=== PATIENT | male | born 2000 | race American Indian/Alaskan Native ===

== ENCOUNTER 2020-06-26 22:56 | Emergency (ER) | payer OTHER ==
[~2020-06-26] VITALS: Ht 172.7 cm; Wt 99.8 kg
[2020-06-27] MEDS ORDERED: PEPCID20 MG PO (02:11)
[2020-06-27] MEDS ORDERED: EPIN0.3P IM (02:11)
[2020-06-27] MEDS ORDERED: PREDNISONE20 MG PO (02:11)
[2020-06-27] MEDS ORDERED: BENADRYL ALLERG25 MG PO (02:11)
== END 2020-06-27 02:58 | disposition home or self-care (01) ==
LOC: ED 22:56
DX: L50.0 Allergic urticaria (principal)
CPT/HCPCS: 96374; 96375; 99283-25; J0171; J1200; J2930

== ENCOUNTER 2021-04-02 13:14 | Emergency (ER) | payer OTHER ==
[~2021-04-02] VITALS: Ht 177.8 cm; Wt 136.1 kg
[~2021-04-02 13:14] MED LIST: BENADRYL ALLERG25 MG PO; EPIN0.3P IM; PEPCID20 MG PO; PREDNISONE20 MG PO
== END 2021-04-02 14:00 | disposition home or self-care (01) ==
LOC: ED 13:14
DX: S06.0X0A Concussion without loss of consciousness, initial encounter (principal); Y93.01 Activity, walking, marching and hiking; W26.8XXA Contact with other sharp object(s), not elsewhere classified, initial encounter; Z79.899 Other long term (current) drug therapy
CPT/HCPCS: 99283

== ENCOUNTER 2021-07-18 21:15 | Emergency (ER) | payer BC, OTHER ==
[~2021-07-18] VITALS: Ht 177.8 cm; Wt 141.0 kg
[2021-07-18] MEDS ORDERED: MAALOX ADVANCE1 EACH PO (23:01)
[2021-07-18] MEDS ORDERED: PEPCID20 MG PO (23:01)
--- NOTE | 2021-07-20 13:31 | EKG ---
[facility] [address] [place], [place] [address] Signed Normal sinus rhythm with sinus arrhythmia Normal ECG No previous ECGs available Confirmed by MICHI RUIZ DO ([id number]) on 07/20/2021 1:30:55 PM Electronically Signed By: MICHI RUIZ DO 07/20/21 1331 PATIENT NAME: CHRISTOPHER SCRUGGS Electrocardiogram DATE OF : [birth year] PHYSICIAN: MICHI RUIZ DO REPORT #: [id number] REPORT IS CONFIDENTIAL AND NOT TO BE RELEASED WITHOUT AUTHORIZATION
== END 2021-07-18 23:25 | disposition home or self-care (01) ==
LOC: ED 21:15
DX: R07.9 Chest pain, unspecified (principal); R09.89 Other specified symptoms and signs involving the circulatory and respiratory systems; E66.9 Obesity, unspecified
CPT/HCPCS: 71046; 80053; 83690; 84484; 85025; 93005; 93010; 99285-25

== ENCOUNTER 2021-07-19 21:45 | Emergency (ER) | payer BC, OTHER ==
[~2021-07-19] VITALS: Ht 177.8 cm; Wt 142.2 kg
[~2021-07-19 21:45] MED LIST changes: +MAALOX ADVANCE1 EACH PO
--- OUTSIDE RECORDS SUMMARY | 2021-07-19 21:52 | XMS ---
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 Rylee has no Care Guidelines for this patient. Mihaela VISIT COUNT (12 MO.) 3 [facility] TOTAL 3 NOTE: Visits indicate total known visits. 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
--- NOTE | 2021-07-20 13:32 | EKG ---
[facility] [address] [facility] [facility] [place], [place] [address] Signed Normal sinus rhythm Minimal voltage criteria for LVH, may be normal variant ( R in aVL ) Borderline ECG When compared with ECG of 18-JUL-2021 21:24, (Unconfirmed) No significant change was found Confirmed by MICHI RUIZ DO ([id number]) on 07/20/2021 1:32:49 PM Electronically Signed By: MICHI RUIZ DO 07/20/21 1332 PATIENT NAME: CHRISTOPHER SCRUGGS Electrocardiogram DATE OF : 00 PHYSICIAN: MICHI RUIZ DO REPORT #: [id number] REPORT IS CONFIDENTIAL AND NOT TO BE RELEASED WITHOUT AUTHORIZATION
== END 2021-07-20 07:02 | disposition home or self-care (01) ==
LOC: ED 21:45
DX: K76.0 Fatty (change of) liver, not elsewhere classified (principal); R07.9 Chest pain, unspecified; Z88.0 Allergy status to penicillin; Z88.8 Allergy status to other drugs, medicaments and biological substances; Z79.899 Other long term (current) drug therapy
CPT/HCPCS: 76705; 80053; 84484; 85025; 85379; 93005; 93010; 99285-25

== ENCOUNTER 2021-08-21 19:19 | Emergency (ER) | payer BC, OTHER ==
[~2021-08-21] VITALS: Ht 177.8 cm; Wt 131.5 kg
--- OUTSIDE RECORDS SUMMARY | 2021-08-21 19:26 | XMS ---
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 E.Fatou VISIT COUNT (12 MO.) 4 [facility] TOTAL 4 NOTE: Visits indicate total known visits. 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
== END 2021-08-21 21:17 | disposition home or self-care (01) ==
LOC: ED 19:19
DX: R10.9 Unspecified abdominal pain (principal); Z88.0 Allergy status to penicillin; Z91.09 Other allergy status, other than to drugs and biological substances
CPT/HCPCS: 36415; 74177; 80053; 82150; 83690; 85025; 99284-25

== ENCOUNTER 2021-09-08 20:11 | Emergency (ER) | payer BC, OTHER ==
[~2021-09-08] VITALS: Ht 177.8 cm; Wt 130.1 kg
--- OUTSIDE RECORDS SUMMARY | 2021-09-08 20:18 | XMS ---
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 Mihaela VISIT COUNT (12 MO.) [address] [place] [address] TOTAL 5 NOTE: Visits indicate total known visits. ED/UCC VISIT TRACKING (12 MO.) 09/08/2021 20:12 [facility] [place] TYPE: Emergency COMPLAINT: - WEAKNESS,CHEST DISCOMFORT,ABD PAIN 08/21/2021 19:19 [facility] [place] TYPE: Emergency COMPLAINT: - ABD PAIN,N/V,LOWER ACK PAIN DIAGNOSES: - Other allergy status, other than to drugs and biological substances - Unspecified abdominal pain - Allergy status to penicillin 07/19/2021 21:45 [facility] [place] TYPE: Emergency COMPLAINT: - CHEST DISCOMFORT,SOB,ABD PAIN DIAGNOSES: - Allergy status to penicillin - Allergy status to other drugs, medicaments and biological substances - Fatty (change of) liver, not elsewhere classified - Other intermediate (current) drug therapy - Chest pain, unspecified - Epigastric pain 07/18/2021 21:16 [facility] [place] TYPE: Emergency COMPLAINT: - CHEST PAIN DIAGNOSES: - Chest pain, unspecified - Other specified symptoms and signs involving the circulatory and respiratory systems - Obesity, unspecified 04/02/2021 13:15 [facility] [place] TYPE: Emergency COMPLAINT: - DISORIENTED, SLUGGISH EYES DIAGNOSES: - Contact with other sharp object(s), not elsewhere classified, initial encounter - Unspecified injury of head, initial encounter - Concussion without loss of consciousness, initial encounter - 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
[2021-09-08] MEDS ORDERED: VISTARIL25 MG PO (23:39)
--- NOTE | 2021-09-09 08:08 | EKG ---
[facility] [address] [facility] [place] [address] Signed Normal sinus rhythm Normal ECG No previous ECGs available Confirmed by TONY MORGAN MD ([id number]) on 09/09/2021 8:07:48 AM Electronically Signed By: TONY MORGAN MD 09/09/21 0808 PATIENT NAME: CHRISTOPHER SCRUGGS Electrocardiogram DATE OF : 00 PHYSICIAN: TONY MORGAN MD REPORT #: [id number] REPORT IS CONFIDENTIAL AND NOT TO BE RELEASED WITHOUT AUTHORIZATION
== END 2021-09-09 00:05 | disposition home or self-care (01) ==
LOC: ED 20:11
DX: F41.9 Anxiety disorder, unspecified (principal); R07.89 Other chest pain; Z88.0 Allergy status to penicillin; Z91.09 Other allergy status, other than to drugs and biological substances
CPT/HCPCS: 36415; 71045; 80053; 83690; 84484; 85025; 93005; 93010; 99285-25; J2060

== ENCOUNTER 2021-09-10 21:32 | Emergency (ER) | payer BC, OTHER ==
[~2021-09-10] VITALS: Ht 177.8 cm; Wt 130.0 kg
[~2021-09-10 21:32] MED LIST changes: +VISTARIL25 MG PO
--- OUTSIDE RECORDS SUMMARY | 2021-09-10 21:40 | XMS ---
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 Mihaela VISIT COUNT (12 MO.) 6 [facility] TOTAL 6 NOTE: Visits indicate total known visits. 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
== END 2021-09-10 23:19 | disposition home or self-care (01) ==
LOC: ED 21:32
DX: K59.00 Constipation, unspecified (principal); Z88.0 Allergy status to penicillin; Z91.09 Other allergy status, other than to drugs and biological substances
CPT/HCPCS: 36415; 74018; 80053; 81001; 83690; 85025; 99284-25; A9270

== ENCOUNTER 2021-09-12 21:44 | Emergency (ER) | payer BC, OTHER ==
[~2021-09-12] VITALS: Ht 177.8 cm; Wt 128.8 kg
--- OUTSIDE RECORDS SUMMARY | 2021-09-12 21:54 | XMS ---
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 Mihaela VISIT COUNT (12 MO.) [address] [place] [address] TOTAL 8 NOTE: Visits indicate total known visits. ED/UCC VISIT TRACKING (12 MO.) 09/12/2021 21:[address] [facility] [place] TYPE: Emergency COMPLAINT: - ABD PAIN, BOWELL PROBLEMS 09/11/2021 21:51 [facility] [place] TYPE: Emergency COMPLAINT: - ABD PAIN, CONSTIPATION 09/10/2021 21:33 [facility] [place] TYPE: Emergency COMPLAINT: - CONSTIPATION 09/08/2021 20:[address] [facility] [place] TYPE: Emergency COMPLAINT: - WEAKNESS,CHEST DISCOMFORT,ABD PAIN DIAGNOSES: - Other chest pain - Other allergy status, other than to drugs and biological substances - Allergy status to penicillin - Anxiety disorder, unspecified 08/21/2021 19:19 [facility] [place] TYPE: Emergency [...] liver, not elsewhere classified - Other intermediate accountant (current) drug therapy - Chest pain, unspecified [...] loss of consciousness, initial encounter - Other intermediate accountant (current) drug therapy - Activity, walking, marching and hiking INPATIENT VISIT TRACKING (12 MO.) No inpatient visits to display in this time frame [id number]
--- NOTE | 2021-09-14 14:54 | EKG ---
[facility] [address] [facility] [place] [address] Signed Normal sinus rhythm Incomplete right bundle branch block Borderline ECG When compared with ECG of 08-SEP-2021 20:54, No significant change was found Confirmed by ESTRELLA SWAN MD ([id number]) on 09/14/2021 2:53:53 PM Electronically Signed By: ESTRELLA SWAN MD 09/14/21 1454 PATIENT NAME: CHRISTOPHER SCRUGGS RADHA ALVAREZJANAY Electrocardiogram DATE OF : 00 PHYSICIAN: ESTRELLA SWAN MD REPORT #: [id number] REPORT IS CONFIDENTIAL AND NOT TO BE RELEASED WITHOUT AUTHORIZATION
== END 2021-09-12 23:58 | disposition home or self-care (01) ==
LOC: ED 21:44
DX: R10.12 Left upper quadrant pain (principal); R10.30 Lower abdominal pain, unspecified; R11.0 Nausea; R42 Dizziness and giddiness; Z88.0 Allergy status to penicillin; Z91.09 Other allergy status, other than to drugs and biological substances
CPT/HCPCS: 93005; 93010; 99284-25

== ENCOUNTER 2021-09-15 19:55 | Emergency (ER) | payer BC, OTHER ==
[~2021-09-15] VITALS: Ht 177.8 cm; Wt 130.0 kg
--- OUTSIDE RECORDS SUMMARY | 2021-09-15 20:02 | XMS ---
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 Mihaela VISIT COUNT (12 MO.) [address] [place] [address] TOTAL 9 NOTE: Visits indicate total known visits. ED/UCC VISIT TRACKING (12 MO.) 09/15/2021 19:55 [facility] [place] TYPE: Emergency COMPLAINT: - SHORTNESS OF BREATH 09/12/2021 21:45 [facility] [place] TYPE: Emergency COMPLAINT: - ABD PAIN, BOWELL PROBLEMS DIAGNOSES: - Left upper quadrant pain - Nausea - Allergy status to penicillin - Lower abdominal pain, unspecified - Dizziness and giddiness - Unspecified abdominal pain - Other allergy status, other than to drugs and biological substances 09/11/2021 21:51 [facility] [place] TYPE: Emergency COMPLAINT: - ABD PAIN, CONSTIPATION 09/10/2021 21:33 [facility] [place] [facility]: Emergency COMPLAINT: - CONSTIPATION DIAGNOSES: - Other allergy status, other than to drugs and biological substances - Allergy status to penicillin - Lower abdominal pain, unspecified - Constipation, unspecified 09/08/2021 20:12 [facility] [place] TYPE: Emergency COMPLAINT: - WEAKNESS,CHEST DISCOMFORT,ABD PAIN DIAGNOSES: - Other chest pain - Other allergy status, other than to drugs and biological substances - Allergy status to penicillin - Anxiety disorder, unspecified 08/21/2021 19:19 [facility] [place] TYPE: Emergency COMPLAINT: - ABD PAIN,N/V,LOWER ACK PAIN DIAGNOSES: - Other allergy status, other than to drugs and biological substances - Unspecified abdominal pain - Allergy status to penicillin 07/19/2021 21:45 [facility] [place] [place] TYPE: Emergency COMPLAINT: - CHEST DISCOMFORT,SOB,ABD PAIN DIAGNOSES: - Allergy status to penicillin - Allergy status to other drugs, medicaments and biological substances - Fatty (change of) liver, not elsewhere classified - Other usp (current) drug therapy - Chest pain, unspecified [...] loss of consciousness, initial encounter - Other salvage determiner (current) drug therapy - Activity, walking, marching and hiking INPATIENT VISIT TRACKING (12 MO.) No inpatient visits to display in this time frame [id number]
[2021-09-15] MEDS ORDERED: METAMUCIL FIBE3.4 GM PO (20:07)
[2021-09-15] MEDS ORDERED: medrol dose pack (21:11)
== END 2021-09-15 21:20 | disposition home or self-care (01) ==
LOC: ED 19:55
DX: T78.40XA Allergy, unspecified, initial encounter (principal); Z88.0 Allergy status to penicillin; Z88.8 Allergy status to other drugs, medicaments and biological substances
CPT/HCPCS: 96372; 99284; J1100; J1200

== ENCOUNTER 2022-07-05 19:36 | Emergency (ER) | payer BC, OTHER ==
[~2022-07-05] VITALS: Ht 177.8 cm; Wt 126.0 kg
[~2022-07-05 19:36] MED LIST changes: +METAMUCIL FIBE3.4 GM PO; +medrol dose pack
[2022-07-05] MEDS ORDERED: BUPROPION XL150 MG PO (19:53)
== END 2022-07-05 21:26 | disposition home or self-care (01) ==
LOC: ED 19:36
DX: T28.0XXA Burn of mouth and pharynx, initial encounter (principal); X10.0XXA Contact with hot drinks, initial encounter; Z20.822 Contact with and (suspected) exposure to COVID-19; Z88.0 Allergy status to penicillin; Z88.8 Allergy status to other drugs, medicaments and biological substances; Z79.899 Other long term (current) drug therapy
CPT/HCPCS: 87081; 87502; 87880; 99283; A9270; U0003

== ENCOUNTER 2024-03-28 19:41 | Emergency (ER) | payer BC ==
[~2024-03-28] VITALS: Ht 177.8 cm; Wt 120.0 kg
[~2024-03-28 19:41] MED LIST changes: +BUPROPION XL150 MG PO; +CIPRO500 MG PO; +HYDROCODON-ACE1 EA10 PO; +METRONIDAZOLE500 MG PO; +ONDANSETRON ODT8 MG PO
[2024-03-28 20:26] LABS: EOSINOPHILS 0.5 % (0-6); HEMOGLOBIN 14.9 g/dL (12.0-18.0); MCHC 34.6 g/dl (30-36)
[2024-03-28 20:28] LABS: BASOPHILS 0.4 % (0-2); HEMATOCRIT 42.9 % (35.0-50.0); MCH 30.2 (27-36); MONOCYTES 6.3 % (0-12); NEUTROPHILS 77.8 % (39-80); PLATELET COUNT 264 K/uL (140-440); RBC 4.93 M/ul (4.3-5.7); RDW 12.4 (10.5-15.0)
[2024-03-28] MEDS ORDERED: SODIUM CHLORIDE 0.9% 1,000 ML IV SCH (20:30)
[2024-03-28 20:41] LABS: ALBUMIN 4.2 g/dL (3.4-5.0); ALBUMIN/GLOBULIN RATIO 1.24 (1.1-2.4); ANION GAP 11.9 (7-21); BILIRUBIN, TOTAL 0.4 ng/dL (0.2-1.0); BUN/CREATININE RATIO 13.68 (6.0-28.6); CALCIUM 9.4 mg/dL (8.5-10.1); CREATININE, SERUM 0.95 mg/dL (0.70-1.30); POTASSIUM 3.9 mmol/L (3.5-5.1); PROTEIN, TOTAL 7.6 g/dL (6.4-8.2)
[2024-03-28 22:21] LABS: BILIRUBIN, URINE NEGATIVE (negative); BLOOD/HGB, URINE NEGATIVE (Negative); KETONE, URINE NEGATIVE (Negative); LEUK ESTERASE, URINE NEGATIVE (negative); NITRITE, URINE NEGATIVE (negative)
[2024-03-28] MEDS ORDERED: HYDROCODONE BIT/ACETAMINOPHEN 5/325 MG 1 TAB HOME.PACK PO PRN (22:30)
[2024-03-28] MEDS ORDERED: ONDANSETRON 4 MG HOME.PACK SL ONE (22:30)
[2024-03-28 22:43] VITALS: BP 143/84
== END 2024-03-28 22:43 | disposition home or self-care (01) ==
LOC: ED 19:41
PROVIDERS: Emergency Medicine
DX: R10.9 Unspecified abdominal pain (principal); Z88.0 Allergy status to penicillin; Z91.09 Other allergy status, other than to drugs and biological substances
CPT/HCPCS: 36415; 74177; 80053; 81003; 83690; 85025; 99284-25; A9270; J7030

== ENCOUNTER 2024-04-01 12:54 | Emergency (ER) | payer BC ==
[~2024-04-01] VITALS: Ht 177.8 cm; Wt 121.2 kg
--- OUTSIDE RECORDS SUMMARY | 2024-04-01 13:01 | XMS ---
PreManage Notification: CHRISTOPHER SCRUGGS Security Scheduling Assistant Events No recent Security Events currently on file CRITERIA MET - [facility] - 2 Visits in 30 Days CARE PROVIDERS -, [place]- Dentist: Consulting Manager [facility] PHONE: [phone] ADRIAN [facility] Current PHONE: [phone] APOORVA LY Physician Current PHONE: [phone] Rylee has no Care Guidelines for this patient. ETammy VISIT COUNT (12 MO.) 2 [facility] TOTAL 2 NOTE: Visits indicate total known visits. ED/UCC VISIT TRACKING (12 MO.) 04/01/2024 12:54 [facility] [place] TYPE: Emergency COMPLAINT: - ABDOMINAL PAIN 03/28/2024 19:41 [facility] [place] TYPE: Emergency COMPLAINT: - ABD PAIN DIAGNOSES: - Allergy status to penicillin - Other allergy status, other than to drugs and biological substances - Unspecified abdominal pain INPATIENT VISIT TRACKING (12 MO.) No inpatient visits to display in this time frame [id number]
[2024-04-01] MEDS ORDERED: ondansetron HCL 4 MG/2 ML VIAL IV ONE (13:30)
[2024-04-01 13:32] LABS: BASOPHILS 1.1 % (0-2); EOSINOPHILS 1.2 % (0-6); HEMATOCRIT 47.7 % (35.0-50.0); HEMOGLOBIN 16.6 g/dL (12.0-18.0); LYMPHOCYTES 19.8 % (24-44); MCH 30.4 (27-36); MCHC 34.8 g/dl (30-36); MCV 87.5 fl (81-99); MONOCYTES 6.3 % (0-12); NEUTROPHILS 71.6 % (39-80); PLATELET COUNT 267 K/uL (140-440); RBC 5.45 M/ul (4.3-5.7); RDW 12.6 (10.5-15.0)
[2024-04-01 13:40] LABS: ALBUMIN 4.5 g/dL (3.4-5.0); ALBUMIN/GLOBULIN RATIO 1.18 (1.1-2.4); ANION GAP 9.8 (7-21); BILIRUBIN, TOTAL 1.1 ng/dL (0.2-1.0); BUN/CREATININE RATIO 10.47 (6.0-28.6); CALCIUM 9.5 mg/dL (8.5-10.1); CREATININE, SERUM 1.05 mg/dL (0.70-1.30); POTASSIUM 3.8 mmol/L (3.5-5.1); PROTEIN, TOTAL 8.3 g/dL (6.4-8.2)
[2024-04-01] MEDS ORDERED: LIDOCAINE & ANTACID 35 ML BTL PO ONE (13:45)
[2024-04-01] MEDS ORDERED: ACETAMINOPHEN 500 MG TAB PO ONE (15:45)
[2024-04-01] MEDS ORDERED: PANTOPRAZOLE SODIUM 40 MG TABEC PO ONE (15:45)
[2024-04-01] MEDS ORDERED: OMEPRAZOLE20 MG PO (16:01)
[2024-04-01 16:05] VITALS: BP 139/84
[2024-04-02] MEDS ORDERED: MIRALAX119 GM PO (22:12)
== END 2024-04-01 16:05 | disposition home or self-care (01) ==
LOC: ED 12:54
PROVIDERS: Emergency Medicine
DX: K29.70 Gastritis, unspecified, without bleeding (principal); Z88.0 Allergy status to penicillin; Z91.09 Other allergy status, other than to drugs and biological substances
CPT/HCPCS: 36415; 80053; 83690; 85025; 96374; 99284-25; A9270; J2405

== ENCOUNTER 2024-04-02 19:44 | Emergency (ER) | payer BC ==
[~2024-04-02] VITALS: Ht 177.8 cm; Wt 121.3 kg
[~2024-04-02 19:44] MED LIST changes: +OMEPRAZOLE20 MG PO
--- OUTSIDE RECORDS SUMMARY | 2024-04-02 19:51 | XMS ---
PreManage Notification: CHRISTOPHER SCRUGGS Security Medical Collector Events No recent Security Events currently on file CRITERIA MET - [facility] - 2 Visits in 30 Days CARE PROVIDERS -, [place]- Dentist: Supply Chain Procurement Manager [facility] PHONE: [phone] AD[facility] Current PHONE: [phone] APOORVA LY Physician Current PHONE: [phone] Rylee has no Care Guidelines for this patient. ETammy VISIT COUNT (12 MO.) 3 [facility] TOTAL 3 NOTE: Visits indicate total known visits. ED/UCC VISIT TRACKING (12 MO.) 04/02/2024 19:45 [facility] [place] TYPE: Emergency COMPLAINT: - ABD PAIN 04/01/2024 12:54 [facility] [place] TYPE: Emergency COMPLAINT: - ABDOMINAL PAIN 03/28/2024 19:41 [facility] [place] TYPE: Emergency COMPLAINT: - ABD PAIN DIAGNOSES: - Allergy status to penicillin - Other allergy status, other than to drugs and biological substances - Unspecified abdominal pain INPATIENT VISIT TRACKING (12 MO.) No inpatient visits to display in this time frame [email or web address]
[2024-04-02 20:07] LABS: BASOPHILS 0.4 % (0-2); EOSINOPHILS 1.1 % (0-6); HEMATOCRIT 46.6 % (35.0-50.0); HEMOGLOBIN 16.4 g/dL (12.0-18.0); LYMPHOCYTES 22.8 % (24-44); MCH 30.5 (27-36); MCHC 35.2 g/dl (30-36); MCV 86.6 fl (81-99); MONOCYTES 8.4 % (0-12); NEUTROPHILS 67.3 % (39-80); PLATELET COUNT 305 K/uL (140-440); RBC 5.39 M/ul (4.3-5.7); RDW 12.7 (10.5-15.0)
[2024-04-02] MEDS ORDERED: ondansetron HCL 4 MG/2 ML VIAL IV ONE ×2 (20:15→20:30)
[2024-04-02 20:21] LABS: ALBUMIN 4.4 g/dL (3.4-5.0); ALBUMIN/GLOBULIN RATIO 1.19 (1.1-2.4); ANION GAP 13.1 (7-21); BILIRUBIN, TOTAL 0.6 ng/dL (0.2-1.0); BUN/CREATININE RATIO 10.9 (6.0-28.6); CALCIUM 9.4 mg/dL (8.5-10.1); CREATININE, SERUM 1.1 mg/dL (0.70-1.30); POTASSIUM 4.1 mmol/L (3.5-5.1); PROTEIN, TOTAL 8.1 g/dL (6.4-8.2)
[2024-04-02] MEDS ORDERED: KETOROLAC TROMETHAMINE 30 MG/ML VIAL IV ONE (20:30)
[2024-04-02] MEDS ORDERED: FAMOTIDINE 20 MG/ 2 ML VIAL IV ONE (20:30)
[2024-04-02 20:56] LABS: BILIRUBIN, URINE NEGATIVE (negative); BLOOD/HGB, URINE NEGATIVE (Negative); KETONE, URINE NEGATIVE (Negative); LEUK ESTERASE, URINE NEGATIVE (negative); NITRITE, URINE NEGATIVE (negative)
[2024-04-02] MEDS ORDERED: MIRALAX119 GM PO (22:12)
[2024-04-02] MEDS ORDERED: MAGNESIUM CITRATE 300 ML BTL PO ONE (22:15)
[2024-04-02 22:26] VITALS: BP 146/84
== END 2024-04-02 22:27 | disposition home or self-care (01) ==
LOC: ED 19:44
PROVIDERS: Internal Medicine
DX: K59.00 Constipation, unspecified (principal); Z88.0 Allergy status to penicillin; Z91.09 Other allergy status, other than to drugs and biological substances; Z79.899 Other long term (current) drug therapy
CPT/HCPCS: 36415; 76705; 80053; 81003; 83690; 85025; 96374; 96375; 99284-25; J1885; J2405